=== PATIENT | male | born 1960 | race Asian ===

== ENCOUNTER 2016-12-21 13:15 | Outpatient (CLI) | payer OTHER | END 2016-12-21 13:16 | disposition home or self-care (01) | DX: G47.33 Obstructive sleep apnea (adult) (pediatric) (principal) ==

== ENCOUNTER 2018-03-06 10:48 | Outpatient (CLI) | payer OTHER | END 2018-03-06 10:49 | disposition home or self-care (01) | LOC: SC 10:48 | PROVIDERS: ATTEND Nurse Practitioner Family | DX: G47.33 Obstructive sleep apnea (adult) (pediatric) (principal) | CPT/HCPCS: 99212; 99213 ==

== ENCOUNTER 2018-05-09 10:42 | Outpatient (CLI) | payer OTHER | END 2018-05-09 10:43 | disposition home or self-care (01) | LOC: SC 10:42 | PROVIDERS: ATTEND Nurse Practitioner Family | DX: G47.33 Obstructive sleep apnea (adult) (pediatric) (principal) | CPT/HCPCS: 99212; 99214 ==

== ENCOUNTER 2019-05-20 15:11 | Outpatient (CLI) | payer OTHER ==
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
[2019-05-20 16:06] VITALS: BP 110/68
== END 2019-05-20 15:12 | disposition home or self-care (01) ==
LOC: SC 15:11
PROVIDERS: ATTEND Nurse Practitioner Family
DX: G47.33 Obstructive sleep apnea (adult) (pediatric) (principal)
CPT/HCPCS: 99212; 99214

== ENCOUNTER 2020-07-16 09:32 | Outpatient (CLI) | payer OTHER ==
--- NOTE | 2020-07-16 09:58 | SLEEP CARE CONSULTATION ---
Information from patient questionnaire entered by Annamaria Núñez. I have reviewed and concur with the information entered by Annamaria Núñez. This document represents the service I personally performed and the decisions made by , Mitali Bryant ARNP. History of Present Illness Service Date and Time: 07/16/2020 0932 Previous diagnosis: Mild, Obstructive Sleep Apnea-Hypopnea Syndrome AHI: 5.0 (in 2007) Reason for follow up: annual (last seen 2019) Equipment type: CPAP Equipment obtained from: [facility] (getting supplies as needed) Mask style: Nasal pillows Mask brand: Respironics (Dreamwear) Backup mask available: Yes (old mask) Last cushion change: 2 days ago Prior sleep studies: Yes Year and Where: [address] [place] [address] Sleep HPI additional information: AMARA COTTON was diagnosed to have mild, AHI 5.0, obstructive sleep apnea- hypopnea syndrome and returned today for CPAP therapy annual follow-up. CPAP Compliance Data - Data Reviewed with Patient Average duration of nightly device use: 5.9 Compliance rate %: 92.8 (180 days) Current pressure setting (cmH2O): 8-9 Humidity settin Heated hose settin Average residual AHI: 3.6 Central apnea: 0.4 Obstructive apnea: 0.9 Average large leak: 1 min 4 sec Subjective Missed days of use due to: reports: illness, travel Patient concerns: denies: aerophagia, mask discomfort, air blowing in eyes, mask leak noise, condensation in mask/hose, nasal congestion, dry mouth, nose, throat, epistaxis, other Observed to snore while using device: No Current pressure setting perceived as: comfortable On therapy, patient: reports: sleeping better, awakening more refreshed, being more awake and alert during the day, more rested overall. denies: drowsiness while driving Initial [place] Sleepiness Scale score: 17 (in 2016) Current [place] Sleepiness Scale score: 7 Allergies and Home Medications Drug allergies reviewed: Yes (NKDA) Home medication list reviewed: Yes (no changes) Review of Systems Review of systems same as previous: Yes (no changes) Physical Exam Heart Rate: 90 O2 Saturation: 98 Height: 5 ft 6 in Weight: 160 lb Body Mass Index: 25.8 BMI Classification: Overweight Impression and Plan 1. Obstructive Sleep Apnea-Hypopnea Syndrome, mild, with good treatment compliance and good apnea control. On CPAP therapy, the patient has better sleep quality and is more rested overall. He has no issues and is very happy with use of the CPAP therapy. Patient's apnea severity and rationale for treatment to reduce apnea, improve sleep quality and reduce cardiovascular and cerebrovascular events was reviewed. I also reviewed the benefit of consistent device use of CPAP for his gastric reflux. * Continue autoCPAP pressure at 8-9 cmH2O * Notify me if snoring with mask or feeling that the pressure is too much or too little * Attempt to lose weight * Call this office if any problems using CPAP * Return for follow up in 1 year, or sooner if concerns arise Counseling Topics: Spare mask, Weight loss health impact Visit Type: In Office Time Spent with Patient (minutes): 15 Provider Statement: I spent 100% of the Face to Face Visit with the patient with greater than 50% spent counseling the patient and coordination of care.
== END 2020-07-16 09:33 | disposition home or self-care (01) ==
LOC: SC 09:32
PROVIDERS: ATTEND Nurse Practitioner Family
DX: G47.33 Obstructive sleep apnea (adult) (pediatric) (principal); E66.3 Overweight; Z68.25 Body mass index [BMI] 25.0-25.9, adult
CPT/HCPCS: 99212

== ENCOUNTER 2021-11-26 10:41 | Outpatient (CLI) | payer OTHER ==
[2021-11-26 11:15] VITALS: BP 131/76
--- NOTE | 2021-11-26 11:15 | SLEEP CARE CONSULTATION ---
Information from patient questionnaire entered by Topher Diop MA. I have reviewed and concur with the information entered by Topher Diop MA. This document represents the service I personally performed and the decisions made by , Mitali Bryant ARNP. History of Present Illness Service Date and Time: 11/26/2021 1041 Previous diagnosis: Mild, Obstructive Sleep Apnea-Hypopnea Syndrome AHI: 5.0 (in 2007) Reason for follow up: annual (LAST SEEN 07/2020) Equipment type: CPAP Equipment obtained from: Other ([facility]; getting supplies as needed) Mask style: Nasal pillows Backup mask available: Yes (old mask) Last cushion change: 1 month Prior sleep studies: Yes Year and Where: [address] [place] [address] Sleep HPI additional information: AMARA COTTON was diagnosed to have mild, AHI 5.0, obstructive sleep apnea-h ypopnea syndrome and returned today for CPAP therapy annual follow-up. Sleep Study - Results Prior sleep studies: Yes Year and Where: [address] [place] [address] Sleep CPAP Compliance Data - Data Reviewed with Patient Average duration of nightly device use: 5 HOURS 13 MINUTES Compliance rate %: 70.0 (Sep - OCT 26, 2021) Current pressure setting (cmH2O): 8-9 Humidity settin Heated hose settin Average residual AHI: 2.6 Average large leak: 11 SECS Compliance data discussion: He stopped using his CPAP due to the recall on his device. Subjective Missed days of use due to: reports: other (recall) Patient concerns: denies: aerophagia, mask discomfort, air blowing in eyes, mask leak noise, condensation in mask/hose, nasal congestion, dry mouth, nose, throat, epistaxis Observed to snore while using device: No Current pressure setting perceived as: comfortable On therapy, patient: reports: sleeping better, awakening more refreshed, being more awake and alert during the day, more rested overall, other (headaches when he doesn't use his CPAP). denies: drowsiness while driving Initial [place] Sleepiness Scale score: 17 (in 2015) Current [place] Sleepiness Scale score: 7 (11/2021) Allergies and Home Medications Home medication list reviewed: Yes (Atorvastatin and omeprazole) Review of Systems Review of systems same as previous: Yes (no changes) Physical Exam Vital signs obtained and entered by: JEMIMA ROMERO Blood Pressure: 131/76 (RIGHT, PULSE 80, RESP 16, ) Cuff size: wrist Heart Rate: 82 O2 Saturation: 96 (N95) Height: 5 ft 6 in Weight: 164 lb Weight change since last visit: 4 lb gain Body Mass Index: 26.4 BMI Classification: Overweight Impression and Plan 1. Obstructive Sleep Apnea-Hypopnea Syndrome, mild, with good treatment compliance and good apnea control. On CPAP therapy, the patient has better sleep quality and is more rested overall. Patient has a Dreamstation. He stopped using it about a month ago when he heard about the recall. He has been getting morning headaches since he stopped using his CPAP. Patient has already registered their device for the recall. Patient denies any black particles seen in machine or hoses, any unusual odors coming from device. Patient has not experienced any physical symptoms such as upper airway irritation, headache, skin or eye irritation, asthma, nausea/vomiting, difficulty breathing or chest pain. If patient is not able to sleep due to waking up choking, gasping for air or other respiratory distress that they may decide to continue using it until it is either replaced or repaired. Since the patients current machine is at least 5 years old, the patient is opting to update their device with a device that is not on the recall. A DWO prescription will be made. Compliance guidelines for new device and follow up discussed. Patient voiced understanding and agreement with plan. Patient's apnea severity and rationale for treatment to reduce apnea, improve sleep quality and reduce cardiovascular and cerebrovascular events was reviewed. I also reviewed the benefit of consistent device use of CPAP for gastric reflux. 2. Overweight, unspecified. Patient has gained weight. Currently patients BMI is 26.4. Obesity increases the risk of apnea, CPAP pressure requirements and overall health risks especially cardiovascular and diabetes. Thus patient is advised to lose weight. * Continue auto CPAP pressure at 8-9 cmH2O * Update device * Update supplies as needed * Notify me if snoring with mask or feeling that the pressure is too much or too little * Attempt to lose weight * Call this office if any problems using CPAP * Return for follow up one month after obtaining new device, or sooner if concerns arise Counseling Topics: Spare mask, Weight loss health impact Visit Type: In Office Time Spent with Patient (minutes): 21 Provider Statement: I spent 100% of the Face to Face Visit with the patient with greater than 50% spent counseling the patient and coordination of care.
== END 2021-11-26 10:42 | disposition home or self-care (01) ==
LOC: SC 10:41
PROVIDERS: ATTEND Nurse Practitioner Family
DX: G47.33 Obstructive sleep apnea (adult) (pediatric) (principal); E66.3 Overweight; Z68.26 Body mass index [BMI] 26.0-26.9, adult
CPT/HCPCS: 99212; 99213

== ENCOUNTER 2023-04-14 09:09 | Outpatient (CLI) | payer OTHER ==
--- NOTE | 2023-04-14 09:27 | Sleep Patient Instructions ---
Sleep Center Visit Summary - Patient Visit Information Reason for Visit: Annual visit for PAP therapy - Patient Instructions Additional Instructions: You will continue with CPAP therapy with pressure set at 6 cmH2O. A supply prescription will be updated with your DME. We encourage you to continue to try to lose weight. Please follow up with the sleep care office in 1 year. - Clinic Information Contact: [facility] [address] [place] [address] [email or web address] T: [phone]
--- NOTE | 2023-04-14 09:32 | SLEEP CARE CONSULTATION ---
Information from patient questionnaire entered by Zeenat Tipton. I have reviewed and concur with the information entered by Zeenat Tipton. This document represents the service I personally performed and the decisions made by , Mitali Bryant ARNP. History of Present Illness Service Date and Time: 04/14/2023 0909 Previous diagnosis: Mild, Obstructive Sleep Apnea-Hypopnea Syndrome AHI: 5.0 (in 2007) Reason for follow up: annual (LAST SEEN 03/2022) Equipment type: CPAP ([facility]; ICODE SD CARD NEEDED) Equipment obtained from: Other ([facility]; getting supplies as needed) Mask style: Nasal pillows Backup mask available: Yes (old mask) Last cushion change: last week Prior sleep studies: Yes Year and Where: [address] [place] [address] Sleep HPI additional information: AYE COTTON was diagnosed to have mild, AHI 5, obstructive sleep apnea- hypopnea syndrome and returned today for CPAP therapy annual follow-up. Sleep Study - Results Prior sleep studies: Yes Year and Where: [address] [place] [address] Sleep Subjective Missed days of use due to: reports: travel Patient concerns: reports: dry mouth, nose, throat (dry nose, has allergies, worse in morning). denies: aerophagia, mask discomfort, air blowing in eyes, mask leak noise, condensation in mask/hose, nasal congestion, epistaxis Observed to snore while using device: No Current pressure setting perceived as: comfortable On therapy, patient: reports: sleeping better, awakening more refreshed, being more awake and alert during the day, more rested overall. denies: drowsiness while driving Initial [place] Sleepiness Scale score: 17 (in 2016) Current [place] Sleepiness Scale score: 5 (04/14/23) Allergies and Home Medications Known drug allergies: No Drug allergies reviewed: Yes Home medication list reviewed: Yes (no changes) Review of Systems Review of systems same as previous: Yes (no changes) Physical Exam Vital signs obtained and entered by: ZEENAT Quintero MA Blood Pressure: 110/68 (LEFT ARM) Cuff size: regular Heart Rate: 65 O2 Saturation: 98 Height: 5 ft 6 in Weight: 160 lb 9.6 oz Body Mass Index: 25.9 BMI Classification: Overweight Impression and Plan 1. Obstructive Sleep Apnea-Hypopnea Syndrome, mild, with unknown treatment compliance and unknown apnea control. On CPAP therapy, the patient has better sleep quality and is more rested overall. Patient brought in his SD card but we are unable to get his therapy report because the website is down. We did try to contact his DME who is unable to obtain any information because the machine he has does not have a modem. He will bring in his SD card on Monday and we will try to get his therapy data. Aye is usually compliant with his use. He states he was unable to use it once when he was traveling and his adapter for the electrical outlet stopped working. He really does like using his CPAP since changing to the nasal pillows mask. Patient's apnea severity and rationale for treatment to reduce apnea, improve sleep quality and reduce cardiovascular and cerebrovascular events was reviewed. I also reviewed the benefit of consistent device use of CPAP for gastric reflux. 2. Overweight, unspecified. Currently patients BMI is 25.9. Obesity increases the risk of apnea, CPAP pressure requirements and overall health risks especially cardiovascular and diabetes. Thus patient is advised to maintain a healthy weight. * Continue CPAP pressure at 6 cmH2O * Obtain therapy report from [facility] * Update supply prescription * Notify me if snoring with mask or feeling that the pressure is too much or too little * Maintain healthy weight * Call this office if any problems using CPAP * Return for follow up in 1 year, or sooner if concerns arise Counseling Topics: Spare mask, Weight loss health impact Visit Type: In Office Time Spent with Patient (minutes): 17 Provider Statement: I spent 100% of the Face to Face Visit with the patient with greater than 50% spent counseling the patient and coordination of care.
[2023-04-14 09:42] VITALS: BP 110/68
== END 2023-04-14 09:10 | disposition home or self-care (01) ==
LOC: SC 09:09
PROVIDERS: ATTEND Nurse Practitioner Family
DX: G47.33 Obstructive sleep apnea (adult) (pediatric) (principal); E66.3 Overweight; Z68.25 Body mass index [BMI] 25.0-25.9, adult
CPT/HCPCS: 99212

== ENCOUNTER 2024-05-17 09:26 | Outpatient (CLI) | payer OTHER ==
--- NOTE | 2024-05-17 09:59 | Sleep Patient Instructions ---
Sleep Center Visit Summary - Patient Visit Information Reason for Visit: Annual follow-up - Patient Instructions Additional Instructions: You will continue with CPAP therapy with pressure set at 4-6 cmH2O. A supply prescription will be updated with your DME supplier. Please follow up with the sleep care office in 1 year. - Clinic Information Contact: [facility] [address] [place] [address] [email or web address] T: [phone]
--- NOTE | 2024-05-17 10:02 | SLEEP CARE CONSULTATION ---
Information from patient questionnaire entered by Shree Jung. I have reviewed and concur with the information entered by Shree Jung. This document represents the service I personally performed and the decisions made by , Mitali Bryant ARNP. History of Present Illness Service Date and Time: 05/17/2024925 Previous diagnosis: Mild, Obstructive Sleep Apnea-Hypopnea Syndrome AHI: 5.0 (in 2007) Reason for follow up: annual (Last seen 04/2023) Equipment type: CPAP ([facility]; ICODE SD CARD NEEDED) Equipment obtained from: Other ([facility]; getting supplies as needed) Mask style: Nasal pillows Backup mask available: Yes Last cushion change: last week Prior sleep studies: Yes Year and Where: [address] [place] [address] Sleep HPI additional information: AMARA COTTON was diagnosed to have mild, AHI 5, obstructive sleep apnea- hypopnea syndrome and returned today for CPAP therapy annual follow-up. Sleep Study - Results Prior sleep studies: Yes Year and Where: [address] [place] [address] Sleep CPAP Compliance Data - Data Reviewed with Patient Average duration of nightly device use: 6 hours Compliance rate %: 82 (150/182 days used) Current pressure setting (cmH2O): 4-6 Average residual AHI: 1.1 Subjective Missed days of use due to: reports: illness, travel Patient concerns: denies: aerophagia, mask discomfort, air blowing in eyes, mask leak noise, condensation in mask/hose, nasal congestion, dry mouth, nose, throat, epistaxis Observed to snore while using device: No Current pressure setting perceived as: comfortable On therapy, patient: reports: sleeping better, awakening more refreshed, being more awake and alert during the day, more rested overall. denies: drowsiness while driving Initial [place] Sleepiness Scale score: 17 (in 2016) Current [place] Sleepiness Scale score: 4 (05/17/2024) Allergies and Home Medications Known drug allergies: No Drug allergies reviewed: Yes Home medication list reviewed: Yes (no changes) Review of Systems Review of systems same as previous: Yes (no changes) Physical Exam Vital signs obtained and entered by: Mitali Yang NP Blood Pressure: 129/83 Cuff size: regular (right arm) Heart Rate: 69 O2 Saturation: 97 Height: 5 ft 6 in Weight: 163 lb 12.8 oz Weight change since last visit: 3 lb gain Body Mass Index: 26.4 BMI Classification: Overweight Impression and Plan 1. Obstructive Sleep Apnea-Hypopnea Syndrome, mild, with good treatment compliance and good apnea control. On CPAP therapy, the patient has better sleep quality and is more rested overall. He has significant improvement of his sleep apnea and is comfortable with CPAP use. Patient denies problems with oral dryness, nasal congestion, epistaxis, skin irritation or aerophagia. Patient's apnea severity and rationale for treatment to reduce apnea, improve sleep quality and reduce cardiovascular and cerebrovascular events was reviewed. I also reviewed the benefit of consistent device use of CPAP for gastric reflux. 2. Overweight, unspecified. Currently patients BMI is 26.4. Obesity increases the risk of apnea, CPAP pressure requirements and overall health risks especially cardiovascular and diabetes. Thus patient is advised to maintain a healthy weight. * Continue auto CPAP pressure at 4-6 cmH2O * Update supply prescription. * Notify me if snoring with mask or feeling that the pressure is too much or too little * Maintain healthy weight * Call this office if any problems using CPAP * Return for follow up in 12 months, or sooner if concerns arise Counseling Topics: Spare mask, Weight control Prescriptions: Device supplies Follow up with Sleep Care in: 1 year Visit Type: In Office Time Spent with Patient (minutes): 23 Provider Statement: I spent 100% of the Face to Face Visit with the patient with greater than 50% spent counseling the patient and coordination of care.
[2024-05-17 10:09] VITALS: BP 129/83; O2SAT 97
== END 2024-05-17 09:27 | disposition home or self-care (01) ==
LOC: SC 09:26
PROVIDERS: ATTEND Nurse Practitioner Family
DX: G47.33 Obstructive sleep apnea (adult) (pediatric) (principal); E66.3 Overweight; Z68.26 Body mass index [BMI] 26.0-26.9, adult
CPT/HCPCS: 99212; 99213